=== PATIENT | male | born 1965 | race African-American/Black ===

== ENCOUNTER 2017-12-07 06:44 | Emergency (ER) | payer OTHER ==
[~2017-12-07] VITALS: Ht 198.1 cm; Wt 130.3 kg
[2017-12-07 06:51] VITALS: BP 160/116
== END 2017-12-07 16:00 | disposition left against medical advice (07) ==
LOC: ER 07:24
DX: Z53.21 Procedure and treatment not carried out due to patient leaving prior to being seen by health care provider (principal)